=== PATIENT | female | born 1955 | race Caucasian/White ===

== ENCOUNTER → 2016-11-08 | Outpatient (CLI) | payer BC ==
[~2016-11-08] MED LIST: ARM1 PO; CHOL2000 PO; GLC500 PO; HYDR25TA4 PO; LEVO112T2 PO; LORA-741 PO; METF-384 PO; METO1TAB66 PO; OMEP20TA PO; TRAM-10 PO; [UNRECOGNIZED DRUG - OTHER] PO; [UNRECOGNIZED DRUG - OTHER] PO
[2016-11-08 10:06] LABS: ESTIMATED AVERAGE GLUCOSE 140 mg/dl; HA1C FLAG Normal (Normal)
[2016-11-08 10:23] LABS: CHOLESTEROL/HDL RATIO 2.9; THYROID STIMULATING HORMONE 0.423 uIu/ml (0.300-4.500)
[2016-11-08 10:24] LABS: RATIO 9.1 mcg/mg (0-30.0)
== END | disposition home or self-care (01) ==
LOC: C.LAB 16:35
PROVIDERS: ATTEND Nurse Practitioner Family
DX: E11.9 Type 2 diabetes mellitus without complications (principal)

== ENCOUNTER → 2016-12-27 | Outpatient (CLI) | payer BC ==
[~2016-12-27] MED LIST changes: -GLC500 PO; +METO-452 PO; -METO1TAB66 PO
--- NOTE | 2016-12-27 12:48 | MAMMOGRAPHY REPORT ---
BILATERAL DIGITAL DIAGNOSTIC MAMMOGRAM TOMOSYNTHESIS WITH CAD: 12/27/2016 CLINICAL HISTORY: History of right breast cancer status post lumpectomy 10/26/2014 as well as chemorad iation. The patient denies any current complaints. She also has a history of a benign MRI guided b iopsy of the left breast. TECHNIQUE: Breast tomosynthesis in addition to standard 2D mammography was performed. Current study was also evaluated with a Computer Aided Detection (CAD) system. Bilateral CC and MLO 2-D and nava synthesis images were obtained. COMPARISON: Comparison is made to exams dated: 06/12/2016 MRI biopsy, 06/12/2016 mammogram, 05/03/2016 breast MRI, 11/03/2015 mammogram, 11/03/2015 ultrasound, and [facility] BREAST COMPOSITION: The tissue of both breasts is heterogeneously dense, which may obscure small ma sses. FINDINGS: There are stable postoperative changes in the right medial breast from prior lumpectomy, including minimal density and architectural distortion at the lumpectomy bed. A linear scar marker denotes a scar on the right medial breast. Mild diffuse right breast skin thickening is slightly de creased, likely a sequela of radiation therapy. The remainder of both breasts are also stable compared to prior exams, without suspicious masses, ca lcifications, or areas of architectural distortion noted. A biopsy marker clip is again noted in th e left 12:00 breast from prior benign MRI guided biopsy. Bilateral benign-appearing calcifications are not significantly changed. A port catheter overlies the left pectoralis muscle. IMPRESSION: ACR BI-RADS CATEGORY 2: BENIGN Stable posttreatment changes in the right breast, without mammographic evidence of malignancy in eit her breast. Recommend bilateral diagnostic mammograms in one year. The patient is also due for fol low-up MRI at this time. The patient has been verbally notified of the results. Approximately 10% of breast cancers are not detected with mammography. A negative mammographic repor t should not delay biopsy if a clinically suggestive mass is present. Elzbieta Faye M.D. /:12/27/2016 11:54:48 City Manager: Aidan ROLAND(Shireen)(Deepika), [facility] letter sent: Normal 1/2 BI-RADS Code: ACR BI-RADS Category 2: Benign
== END | disposition home or self-care (01) ==
LOC: C.MAMM 10:59
PROVIDERS: ATTEND Surgery
DX: R92.8 Other abnormal and inconclusive findings on diagnostic imaging of breast (principal); Z85.3 Personal history of malignant neoplasm of breast

== ENCOUNTER → 2016-12-27 | Outpatient (CLI) | payer BC ==
[2016-12-27 14:13] VITALS: BP 136/76; PULSE 76; TEMP 37.1; O2SAT 97
--- NOTE | 2016-12-27 15:28 | Radiation Oncology Follow-Up ---
Radiation Oncology Follow-Up Date of Visit Dec 27, 2016. Reason For Visit Annual follow-up Radiation Completion Date 04/27/15 Diagnosis (1) Breast cancer Status: Resolved Onset Date: 09/30/2014 Location: right breast Histology Subtype: ductal Stage: l (B) Permanent Comment: Abnormal right breast mammogram Status post ultrasound-guided biopsy 09/30/2014 revealing infiltrating ductal carcinoma Estrogen receptor positive, progesterone receptor positive, HER-2/shyam negative Status post lumpectomy and sentinel lymph node biopsy 10/26/2014 Pathologic stage [id number] Was not a candidate for MammoSite therapy Oncotype DX score of 19 Status post completion of 4 cycles of chemotherapy comprised of Cytoxan and Taxotere She completed radiation therapy 04/27/2015 received 6120 cGy Last Edited By: Irina Aaron on May 06, 2015 09:38 History of Present Illness Ms Marcus is a 61-year-old female who denies a family history of breast cancer. Her grandmother was diagnosed with ovarian cancer. She has been followed with screening mammograms. On 09/09/2014 she underwent bilateral digital screening mammogram. Her breast tissue was heterogeneously dense in the middle third of the right breast is a questionable 1.1 cm nodule. Additional spot views were recommended. On 2014 a unilateral right digital diagnostic mammogram and targeted right ultrasound was performed. This revealed a persistent mass in the right breast at the approximate 2 o'clock position measuring 1.0 cm in size. Targeted ultrasound was performed and at the 2 o'clock position in the right breast an irregular hypoechoic solid mass with non-circumscribed margins were noted measuring 0.9 x 0.7 x 0.8 cm. This mass correlates with the mammographic abnormality. These are suspicious and a core needle biopsy was recommended. This was given a BI-RADS Category 5, highly suggestive of malignancy. On 09/30/2014 a unilateral right digital diagnostic mammogram and ultrasound guided right breast biopsy was performed. Marker clip was placed. Pathology revealed an infiltrating ductal carcinoma Ravin grade 2 of 3. The tumor measured up to 0.7 cm on the core biopsy. There was no DCIS or LCIS identified. There was no lymphovascular or perineural invasion identified. Estrogen receptors were positive (greater than 90%, strong). Progesterone receptors were positive (90%, moderate to strong). HER-2/shyam overexpression was negative with faint incomplete staining of less than 10% of the cells. The tumor cells were evaluated by fish analysis and were negative for HER-2/shyam. Case: [id number]. The patient was seen by Dr. Carpenter for evaluation and discussion of treatment options. He felt the patient would be a good candidate for accelerated partial breast irradiation utilizing the MammoSite catheter. The patient has agreed and is scheduled for a partial mastectomy and sentinel lymph node biopsy with insertion of a temporary catheter on 10/26/2014. It is anticipated that the permanent catheter if she remains a candidate will be placed on 10/29/2014. We were asked to see the patient in referral to review with her the specifics of accelerated partial breast irradiation utilizing the MammoSite catheter. She underwent the partial mastectomy and sentinel lymph node biopsy as scheduled. A temporary catheter was placed. The path report revealed invasive ductal carcinoma grade 2. Margins were negative for disease. A single lymph node was examined. This revealed metastatic carcinoma. Micrometastasis. No extranodal extension was identified. Therefore her pathologic staging was [id number]. With the finding of the micrometastatic disease she was no longer a candidate for MammoSite therapy. The temporary catheter was removed And she was referred to medical oncology. Following her lumpectomy and sentinel lymph node biopsy she had an Oncotype DX evaluation and that was found to be 19. She was seen by medical oncology and all information was reviewed. It was felt the patient should undergo chemotherapy. She was given Cytoxan and Taxotere for 4 cycles. She tolerated this well she did not have any nausea or vomiting she was treated from 12/16/2014 2 02/17/2015. 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 She is also had a low potassium which is being followed and supplemented with diet. She will return to our office to undergo radiation therapy. She completed her radiation therapy without breaks. 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 This was treated with natural care gel. She had moderate erythema without desquamation. She also used Aquaphor at bedtime to the inframammary fold and axilla. For the discomfort she used Aleve twice daily taken after food. Interim History She's been doing well over the past year in regards to her breast. She is noted no masses or tenderness. She's had no change of the axilla. She has no swelling of her arm. She is up-to-date on mammography. She had a mammogram performed today. She is scheduled for an MRI of the breasts next week. Because she is diabetic she is having laboratory studies prior to her MRI. She continues to have issues with back pain. She is being followed by the pain clinic. She sees Dr. Anglin. She has injections to her back. The most recent was in November. This particular injection did not work as well as the previous. She also has tramadol and Aleve which does help to relieve the discomfort. She had previously undergone a workup that included a bone scan as well as an MRI last year. 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 There is some narrowing of the central canal L4 to L5. She has disc protrusion at L3 to L4. She was recently seen in medical oncology. She continues on the anastrozole with minimal side effects. Allergies Coded Allergies: Latex (Verified Allergy, Intermediate, CONTACT DERMATITIS-REDNESS, 11/13/16 ) Sulfamethoxazole w/Trimethoprim (Verified Allergy, Intermediate, RASH, ) CHRISTIE Inhibitors (Verified Adverse Reaction, Mild, COUGH, 11/13/16) Coffee (Verified Adverse Reaction, Mild, GI UPSET-ABDOMINAL CRAMPS, ) Candia Oil (Verified Adverse Reaction, Mild, gi upset;abd pain, 11/13/16) Gluten (Verified Adverse Reaction, Mild, GI UPSET, ABDOMINAL DISCOMFORT, ) Tetracycline (Verified Adverse Reaction, Mild, GI UPSET, 11/13/16) Home Medications Scheduled Anastrozole (Anastrozole), 1 TAB PO DAILY Cholecalciferol (Vitamin D3), 6,000 UNITS PO DAILY Hydrochlorothiazide (Hctz), 25 MG PO DAILY Levothyroxine Sodium (Synthroid), 112 MCG PO DAILY Metformin Hcl (Glucophage), 1,000 MG PO BID Metoprolol Succinate (Toprol Xl), 50 MG PO DAILY Omeprazole (Omeprazole), 20 MG PO DAILY [Histaeze], 4 TAB PO DAILY Scheduled PRN Lorazepam (Ativan), 0.5 MG PO HS PRN for Anxiety/Insomnia Tramadol (Ultram), 1-2 TABS PO Q4-6H PRN for Pain Review of Systems Gastrointestinal: Symptoms: Diarrhea GI Comments: Diarrhea daily - relates this to a gluten allergy;4-6 BMs/day; Oral: Symptoms: No Problems Respiratory: Symptoms: WNL Urinary: Symptoms: WNL Skin: Symptoms: No Problems Breast: Right Upper Arm Measurement: 30.0 Right Mid Arm Measurement: 26.0 Right Wrist Measurement: 17.0 Left Upper Arm Measurement: 30.3 Left Mid Arm Measurement: 26.0 Left Wrist Measurement: 16.3 Arm Dominence: Right Physical Exam Vital Signs Date Time Temp Pulse Resp B/P Pulse Ox O2 Delivery O2 Flow Rate FiO2 12/27/16 14:13 37.1 76 20 136/76 97 Fatigue: None General Appearance: no apparent distress Eyes: normal inspection, EOMI ENT: normal ENT inspection, hearing grossly normal Neck: no adenopathy, thyroid normal Respiratory/Chest: lungs clear, no respiratory distress, no accessory muscle use Breast: Breast examination reveals well-healed incisions of the right breast. There are no masses or tenderness and no axillary adenopathy. She has stickers in place from her mammogram was performed today. Using the Hammond score cosmesis she has an outcome. The left breast showed no masses or tenderness and no axillary adenopathy. Cardiovascular: regular rate, rhythm, no gallop, no murmur Abdomen: non tender, soft, no organomegaly Extremities: no pedal edema Neurologic/Psychiatric: no motor/sensory deficits, alert, normal mood/affect Skin: warm/dry Lymphatic: no adenopathy Laboratory Studies Test 11/08/16 09:06 11/08/16 09:09 Urine Random Creatinine 110.0 mg/dl Urine Random Microalbumin 10.0 mg/L Urine Microalbumin/Creatinine Ratio 9.1 mcg/mg (0-30.0) Estimated Average Glucose 140 mg/dl Hemoglobin A1c 6.5 % (4.5-5.6) Triglycerides Level 127 mg/dl (0-150) Cholesterol Level 143 mg/dl (0-200) HDL Cholesterol 50 mg/dl LDL Cholesterol, Calculated 68 mg/dl VLDL Cholesterol, Calculated 25 mg/dl Cholesterol/HDL Ratio 2.9 Thyroid Stimulating Hormone (TSH) 0.423 uIu/ml (0.300-4.500) White Blood Count 8.46 K/uL (4.8-10.8) Red Blood Count 4.75 M/uL (4.2-5.4) Hemoglobin 12.9 g/dL (12.0-16.0) Hematocrit 39.8 % (37-47) Mean Corpuscular Volume 83.8 fL (80-100) Mean Corpuscular Hemoglobin 27.2 pg (25-34) Mean Corpuscular Hemoglobin Concent 32.4 g/dl (32-36) Platelet Count 327 K/uL (130-400) Mean Platelet Volume 10.9 fL (7.4-10.4) Neutrophils (%) (Auto) 69.4 % Lymphocytes (%) (Auto) 18.8 % Monocytes (%) (Auto) 9.1 % Eosinophils (%) (Auto) 2.1 % Basophils (%) (Auto) 0.2 % Neutrophils # (Auto) 5.87 K/uL (1.4-6.5) Lymphocytes # (Auto) 1.59 K/uL (1.2-3.4) Monocytes # (Auto) 0.77 K/uL (0.11-0.59) Eosinophils # (Auto) 0.18 K/uL (0-0.5) Basophils # (Auto) 0.02 K/uL (0-0.2) RDW Standard Deviation 41.6 fL (36.4-46.3) RDW Coefficient of Variation 13.6 % (11.5-14.5) Immature Granulocyte % (Auto) 0.4 % Immature Granulocyte # (Auto) 0.03 K/uL (0.00-0.02) Sodium Level 140 mmol/L (136-145) Potassium Level 3.3 mmol/L (3.5-5.1) Chloride Level 99 mmol/L (98-107) Carbon Dioxide Level 32 mmol/L (21-32) Anion Gap 9.0 mmol/L (3-11) Blood Urea Nitrogen 9 mg/dl (7-18) Creatinine 0.60 mg/dl (0.60-1.20) Est Creatinine Clear Calc Drug Dose 96.6 ml/min Estimated GFR () 114.0 Estimated GFR (Non- 98.4 BUN/Creatinine Ratio 14.8 (10-20) Random Glucose 104 mg/dl (70-99) Calcium Level 9.0 mg/dl (8.5-10.1) Total Bilirubin 1.2 mg/dl (0.2-1) Aspartate Amino Transferase (AST) 49 U/L (15-37) Alanine Aminotransferase (ALT) 107 U/L (12-78) Alkaline Phosphatase 71 U/L (45-117) Lactate Dehydrogenase 165 U/L (84-246) Total Protein 7.2 gm/dl (6.4-8.2) Albumin 3.9 gm/dl (3.4-5.0) Globulin 3.3 gm/dl (2.5-4.0) Albumin/Globulin Ratio 1.2 (0.9-2) Additional Studies BILATERAL DIGITAL DIAGNOSTIC MAMMOGRAM TOMOSYNTHESIS WITH CAD: 12/27/2016 CLINICAL HISTORY: History of right breast cancer status post lumpectomy 2014 as well as chemoradiation. The patient denies any current complaints. She also has a history of a benign MRI guided biopsy of the left breast. TECHNIQUE: Breast tomosynthesis in addition to standard 2D mammography was performed. Current study was also evaluated with a Computer Aided Detection (CAD ) system. Bilateral CC and MLO 2-D and tomosynthesis images were obtained. COMPARISON: Comparison is made to exams dated: 06/12/2016 MRI biopsy, 06/12/2016 mammogram, 05/03/2016 breast MRI, 11/03/2015 mammogram, 11/03/2015 ultrasound, and 09/30/2014 mammogram - [facility]. BREAST COMPOSITION: The tissue of both breasts is heterogeneously dense, which may obscure small masses. FINDINGS: There are stable postoperative changes in the right medial breast from prior lumpectomy, including minimal density and architectural distortion at the lumpectomy bed. A linear scar marker denotes a scar on the right medial breast. Mild diffuse right breast skin thickening is slightly decreased, likely a sequela of radiation therapy. The remainder of both breasts are also stable compared to prior exams, without suspicious masses, calcifications, or areas of architectural distortion noted. A biopsy marker clip is again noted in the left 12:00 breast from prior benign MRI guided biopsy. Bilateral benign-appearing calcifications are not significantly changed. A port catheter overlies the left pectoralis muscle. IMPRESSION: ACR BI-RADS CATEGORY 2: BENIGN Stable posttreatment changes in the right breast, without mammographic evidence of malignancy in either breast. Recommend bilateral diagnostic mammograms in one year. The patient is also due for follow-up MRI at this time. The patient has been verbally notified of the results. Approximately 10% of breast cancers are not detected with mammography. A negative mammographic report should not delay biopsy if a clinically suggestive mass is present. Elzbieta Faye M.D. /:12/27/2016 11:54:48 K 9 Handler/ Deputy: Aidan SAUNDERS)(Deepika), [facility] letter sent: Normal 1/2 BI-RADS Code: ACR BI-RADS Category 2: Benign Assessment & Plan Plan: Continue with scheduled follow-up mammography and MRI. Continue follow- up with the pain clinic in regards to her back pain. Continue follow-up with medical oncology. She continues on Arimidex. We asked her to return to our office in 1 year. She may call if she has any questions or concerns in the interim. Total Time In Follow-Up I spent 20 minutes speaking to the patient performing examination. I spent 15 minutes reviewing information in completing this note. Copy To Bossman Reynaga D.O.; Kamryn Cottrell
== END | disposition home or self-care (01) ==
LOC: C.ONC 13:21
PROVIDERS: ATTEND Physician Assistant Medical
DX: Z08 Encounter for follow-up examination after completed treatment for malignant neoplasm (principal); Z92.3 Personal history of irradiation; Z85.3 Personal history of malignant neoplasm of breast; R92.8 Other abnormal and inconclusive findings on diagnostic imaging of breast

== ENCOUNTER → 2017-01-03 | Outpatient (CLI) | payer BC ==
[~2017-01-03] MED LIST changes: +GADAVIST IV PRN; -[UNRECOGNIZED DRUG - OTHER] PO
--- NOTE | 2017-01-04 13:05 | MAMMOGRAPHY REPORT ---
BREAST MRI OF BOTH BREASTS : 01/03/2017 CLINICAL HISTORY: History of right breast cancer status post lumpectomy October 2014 as well as alice moradiation. She also has a history of benign MRI guided biopsy of the left breast. COMPARISON: Comparison is made to exams dated: 06/12/2016 MRI biopsy, 06/12/2016 mammogram, 05/03/2016 breast MRI, 11/03/2015 mammogram, and 12/27/2016 mammogram - [facility]. Technique: The patient was placed prone in a dedicated breast imaging coil. Precontrast axial T1-we ighted, axial T2-weighted fat saturation, and axial T1-weighted fat saturation images were obtained. After the administration of 8 mL of Gadavist IV contrast, sequential T1-weighted fat saturation im ages were obtained. Subtraction images were obtained of the dynamic contrast enhanced sequences, an d 3-D reformations were performed. The Rudder software was used for kinetic analysis. Findings: There is mild background parenchymal enhancement involving bilateral breasts. Again noted are post surgical changes in the right breast from lumpectomy involving the right medial breast. Mild diffus e right breast skin thickening is not significantly changed and likely represents sequela of radiati on therapy. Clip artifact is seen within the left upper inner quadrant from prior benign MRI guided biopsy. The 2 adjacent foci of enhancement seen within the left upper inner quadrant which were bi opsied are no longer clearly evident, and yielded benign pathology. There are no suspicious enhanci ng masses or areas of abnormal non-mass enhancement within either breast. A few scattered bilateral foci of enhancement are stable compared to the prior MRI and are felt to represent background paren chymal enhancement. There is no evidence of axillary adenopathy. The chest wall structures are negative. Small oval ci rcumscribed 6 mm nonenhancing mass seen within the anterior aspect of the liver is stable compared t o the 05/03/2016 MRI and likely represents a hepatic cyst although is not well evaluated on this exam . The remainder of the axillary soft tissues are grossly unremarkable. IMPRESSION: ACR BI-RADS CATEGORY 2: BENIGN The previously seen 2 adjacent foci in the left upper inner quadrant are longer evident; these were previously biopsied and yielded benign pathology and are considered benign. There is no MRI evidenc e of malignancy in either breast. Recommend bilateral diagnostic mammograms in one year. Elzbieta Faye M.D. ah/:01/03/2017 17:15:50 Fish Boning Machine Feeder: it business process architect, [facility] letter sent: Normal 1/2 BI-RADS Code: ACR BI-RADS Category 2: Benign
== END | disposition home or self-care (01) ==
LOC: C.MRI 12:14
PROVIDERS: ATTEND Internal Medicine Hematology & Oncology
DX: R92.8 Other abnormal and inconclusive findings on diagnostic imaging of breast (principal); Z85.3 Personal history of malignant neoplasm of breast

== ENCOUNTER → 2017-02-01 | Outpatient (CLI) | payer BC ==
[~2017-02-01] MED LIST changes: -GADAVIST IV PRN
== END | disposition home or self-care (01) ==
LOC: C.PAPS 12:44
PROVIDERS: ATTEND Obstetrics & Gynecology
DX: Z12.4 Encounter for screening for malignant neoplasm of cervix (principal)

== ENCOUNTER → 2017-03-29 | Outpatient (CLI) | payer BC ==
[~2017-03-29] MED LIST changes: -METO-452 PO; +METO1TAB66 PO
== END | disposition home or self-care (01) ==
LOC: C.MAMM 13:48
PROVIDERS: ATTEND Internal Medicine Hematology & Oncology
DX: C50.111 Malignant neoplasm of central portion of right female breast (principal); M85.851 Other specified disorders of bone density and structure, right thigh

== ENCOUNTER → 2017-05-23 | Outpatient (CLI) | payer BC ==
[2017-05-23 11:13] LABS: ESTIMATED AVERAGE GLUCOSE 134 mg/dl; HA1C FLAG Normal (Normal)
[2017-05-23 11:41] LABS: RATIO 9.4 mcg/mg (0-30.0)
== END | disposition home or self-care (01) ==
LOC: C.LAB 12:36
PROVIDERS: ATTEND Nurse Practitioner Family
DX: R41.3 Other amnesia (principal); E11.9 Type 2 diabetes mellitus without complications

== ENCOUNTER → 2017-12-26 | Outpatient (CLI) | payer BC ==
[~2017-12-26] MED LIST changes: +METO-452 PO; -METO1TAB66 PO
[2017-12-26 12:57] VITALS: BP 127/82; PULSE 68; TEMP 37.2; O2SAT 94
== END | disposition home or self-care (01) ==
LOC: C.ONC 12:50
PROVIDERS: ATTEND Physician Assistant Medical
DX: D05.11 Intraductal carcinoma in situ of right breast (principal)

== ENCOUNTER → 2018-01-02 | Outpatient (CLI) | payer BC ==
[2018-01-02 09:42] LABS: HEMOGLOBIN A1C 6.4 % (4.5-5.6)
== END | disposition home or self-care (01) ==
LOC: C.LAB 16:19
PROVIDERS: ATTEND Nurse Practitioner Family
DX: I10 Essential (primary) hypertension (principal); E11.9 Type 2 diabetes mellitus without complications

== ENCOUNTER → 2018-01-09 | Outpatient (CLI) | payer BC ==
--- NOTE | 2018-01-09 15:31 | MAMMOGRAPHY REPORT ---
BILATERAL DIGITAL DIAGNOSTIC MAMMOGRAM TOMOSYNTHESIS WITH CAD: 01/09/2018 CLINICAL HISTORY: Diagnostic follow-up of both breasts. Patient has a history of right breast cancer status post breast conservation treatment, and prior benign MRI guided biopsy in the left breast. TECHNIQUE: Bilateral breast tomosynthesis in addition to standard 2D mammography was performed. Curr ent study was also evaluated with a Computer Aided Detection (CAD) system. COMPARISON: Comparison is made to exams dated: 01/09/2018 ultrasound - [facility], 01/03/2017 breast MRI, 06/12/2016 MRI biopsy, 06/12/2016 mammogram, and 05/03/2016 breast MRI - [facility]. BREAST COMPOSITION: The tissue of both breasts is heterogeneously dense, which may obscure small mas ses. FINDINGS: A linear scar marker overlies the medial right breast, denoting the area of prior surgery. There is expected underlying architectural distortion in the 2:00 to 3:00 middle to posterior right breast, denoting the lumpectomy bed. There are scattered stable benign rounded rim calcifications in the right breast without evidence of a new suspicious mass, unexpected distortion, developing asymme try or suspicious microcalcifications. There is a stable metallic biopsy marker clip in the upper inner quadrant of the left breast. There are stable groupings of amorphous microcalcifications in the lateral left breast. No new suspicious masses, calcifications, areas of architectural distortion or asymmetries are seen in the left breast. Recommend bilateral tomosynthesis mammography in 1 year. Also consider breast MRI for additional s creening, given the personal history of dense breasts and right breast cancer. IMPRESSION: ACR BI-RADS CATEGORY 2: BENIGN Stable mammographic appearance of the breasts including expected posttreatment changes in the right b reast, and postbiopsy changes in the left breast, without mammographic evidence of malignancy. Recom mend bilateral tomosynthesis mammography in 1 year, and could remain a diagnostic patient in case any additional mammographic views and/or ultrasound may be needed. Also consider additional surveillanc e with breast MRI. These results and recommendations were discussed with the patient at the time of the exam. Approximately 10% of breast cancers are not detected with mammography. A negative mammographic report should not delay biopsy if a clinically suggestive mass is present. Maggie Cadena M.D. ay/:01/09/2018 13:11:14 Instrument Person: Cris ROLAND(R)(M), [facility] letter sent: Normal /2 BI-RADS Code: ACR BI-RADS Category 2: Benign
== END | disposition home or self-care (01) ==
LOC: C.MAMM 10:48
PROVIDERS: ATTEND Internal Medicine Hematology & Oncology
DX: R92.8 Other abnormal and inconclusive findings on diagnostic imaging of breast (principal); Z85.3 Personal history of malignant neoplasm of breast

== ENCOUNTER → 2018-01-30 | Outpatient (CLI) | payer BC ==
--- NOTE | 2018-01-30 11:37 | DIAGNOSTIC IMAGING REPORT ---
L-SPINE MIN 4 VIEWS ROUTINE CLINICAL HISTORY: R20.9,R29.898,M54.16,M51.36 worsening low back pain. Leg weakness. History of carcinoma. COMPARISON STUDY: December 17, 2015 FINDINGS: No fractures or subluxations are visualized. There are minor degenerative changes. No destructive lesions are visualized on conventional radiographic imaging. IMPRESSION: Mild degenerative change. No fractures or subluxations identified. Electronically signed by: Stewart Marrero M.D. 01/30/2018 11:35 AM Dictated Date/Time: 01/30/2018 11:35 AM
--- NOTE | 2018-01-30 12:06 | DIAGNOSTIC IMAGING REPORT ---
SACRUM COCCYX MIN 2 VIEWS CLINICAL HISTORY: R20.9,R29.898,M54.16,M51.36 worsening low back pain. Leg weakness. History of carcinoma. COMPARISON STUDY: No previous studies for comparison. FINDINGS: Degenerative changes are present within the sacroiliac joints. There are no acute fractures. No destructive lesions are visualized. IMPRESSION: 1. No acute fractures 2. Degenerative changes within the SI joints. Electronically signed by: Stewart Marrero M.D. 01/30/2018 12:05 PM Dictated Date/Time: 01/30/2018 12:04 PM
== END | disposition home or self-care (01) ==
LOC: C.RAD 10:52
PROVIDERS: ATTEND Nurse Practitioner Family
DX: R20.9 Unspecified disturbances of skin sensation (principal); R29.898 Other symptoms and signs involving the musculoskeletal system; M54.16 Radiculopathy, lumbar region; M51.36 Other intervertebral disc degeneration, lumbar region

== ENCOUNTER → 2018-04-03 | Outpatient (CLI) | payer BC ==
[2018-04-03 12:11] LABS: CREATININE RANDOM URINE 84.8 mg/dl
[2018-04-03 12:25] LABS: HEMOGLOBIN A1C 6.5 % (4.5-5.6)
== END | disposition home or self-care (01) ==
LOC: C.CCL 11:13
PROVIDERS: ATTEND Nurse Practitioner Family
DX: E11.9 Type 2 diabetes mellitus without complications (principal); R20.9 Unspecified disturbances of skin sensation; R29.898 Other symptoms and signs involving the musculoskeletal system